=== PATIENT | female | born 1965 | race Caucasian/White ===

== ENCOUNTER 2016-06-01 03:18 | Emergency (ER) | payer OTHER ==
[~2016-06-01] VITALS: Ht 162.6 cm; Wt 74.4 kg
[~2016-06-01 03:18] MED LIST: ALPRAZOLAM0.5 MG PO; ALPRAZOLAM1 MG PO; ASPIR-LOW81 MG PO; ASPIRIN81 M2 PO; ATARAX,VISTARIL25 MG PO; ATORVASTATIN CA40 MG PO; AUGMENTIN875 MG PO; BENTYL20 MG PO; CEFTIN500 MG PO; CELEXA20 MG PO; CHANTIX0.5 MG PO; CITALOPRAM HBR20 MG PO; DICYCLOMINE HCL10 MG PO; DILAUDID4 MG PO; EFFEXOR25 MG PO; ENDOCET 5-3251 EACH PO; ERGOCALCIF50000 UNIT PO; GEODON20 MG PO; GEODON40 MG PO; HYDROCODON-ACE1 EAC7 PO; HYDROXYZINE PAM25 MG PO; IBUPROFEN800 MG PO; IMITREX100 MG PO; KEFLEX500 MG PO; MELOXICAM15 MG PO; MIRTAZAPINE15 MG PO; MOBIC15 MG PO; MOTRIN400 MG PO; NAPROSYN500 MG PO; NAPROXEN500 MG PO; NICODERM CQ1 EAC2 TD; NICOTINE PATCH1 EAC2 TD; OXYCODONE-APAP1 EAC6 PO; PANTOPRAZOLE SO40 MG PO; PERCOCET 10/1 TABLET PO; PERCOCET 5/31 TABLET PO; PERCOCET 7.51 TABLET PO; PRILOSEC20 MG PO; PYRIDIUM100 MG PO; REGLAN10 MG PO; TOPAMAX50 MG PO; TOPIRAMATE25 MG PO; TRAZODONE HCL50 MG PO; TRILAFON2 MG PO; VENLAFAXINE HCL75 M3 PO; VITAMIN D50000 UNI4 PO; XANAX1 MG PO; ZOFRAN ODT4 MG PO; ZOFRAN4 MG PO; ZOFRAN8 MG PO
[2016-06-01 04:11] LABS: CHLORIDE 107 mEq/L (99-109); SODIUM 140 mEq/L (136-147)
[2016-06-01 04:12] LABS: HEMATOCRIT 39.2 % (36.0-46.0); MCH 29.5 PG (29.0-34.0); MCHC 32.4 G/DL (30.0-36.0); MCV 91.2 FL (83-99); MEAN PLAT.VOLUME 10.5 uM^3 (9.5-12.4); PLATELET COUNT 253 K/uL (156-360); RBC DIS.WIDTH-CV 13.7 % (11.8-14.6); RBC DIS.WIDTH-SD 46.1 % (39-53)
[2016-06-01 04:14] LABS: GLUCOSE 132 mg/dL (70-99)
[2016-06-01 04:15] LABS: ANION GAP 10 MEQ/L (2-14); TOTAL BILIRUBIN 0.2 mg/dL (0.0-1.0)
[2016-06-01 04:17] LABS: ALKALINE PHOSPHATASE 128 IU/L (3-129); GFR ESTIMATE (CALCULATED) > 59 mL/min/
[2016-06-01 04:18] LABS: UREA NITROGEN (BUN) 15 mg/dL (9-23)
[2016-06-01 04:21] LABS: TROP-I INTERPRETATION NEGATIVE; TROPONIN-I < 0.01 ng/mL (0.0-0.30)
[2016-06-01 04:25] LABS: D-DIMER ELISA 0.26 mg/L FEU (< 0.57)
[2016-06-01 04:37] LABS: LIPASE 29 U/L (1.0-51.0)
[2016-06-01] MEDS ORDERED: PERCOCET 5/31 TABLET PO (05:23)
[2016-06-01] MEDS ORDERED: LEVAQUIN500 MG PO (05:23)
[2016-06-01] MEDS ORDERED: MEDROL DOSEPAK4 MG PO (05:23)
[2016-06-01] MEDS ORDERED: PROAIR HFA8.5 GM IH (05:23)
[2016-06-01 05:30] VITALS: BP 113/66
[2016-06-01 06:00] LABS: ADD MIUA? YES; BILIRUBIN NEGATIVE; BLOOD LARGE; COLOR YELLOW ((YELLOW)); GLUCOSE (STRIP) NEGATIVE; KETONES NEGATIVE; LEUKOCYTES NEGATIVE; NITRITE NEGATIVE; PROTEIN (STRIP) NEGATIVE; SPECIFIC GRAVITY 1.017 (1.000-1.030); UROBILINOGEN 0.2 MG/DL (0.2-1.0)
[2016-06-01 06:10] LABS: BACTERIA RARE /HPF; EPITHELIAL CELLS RARE /HPF; MUCUS TRACE /LPF; RED BLOOD CELLS TNTC /HPF (0-5); UCUL ADDED? NO; UNCLASSIFIED CRYSTALS 1+ /HPF
== END 2016-06-01 05:44 | disposition home or self-care (01) ==
LOC: EME 03:18
PROVIDERS: Physician Assistant
DX: N13.2 Hydronephrosis with renal and ureteral calculous obstruction (principal); R07.9 Chest pain, unspecified; J44.1 Chronic obstructive pulmonary disease with (acute) exacerbation; J40 Bronchitis, not specified as acute or chronic; Z79.82 Long term (current) use of aspirin; Z79.891 Long term (current) use of opiate analgesic; F17.200 Nicotine dependence, unspecified, uncomplicated
CPT/HCPCS: 71020; 74176; 80053; 81003; 83605; 83690; 84484; 85027; 85379; 93005; 94640; J1885; J2930; J3010; J7030

== ENCOUNTER 2016-06-05 17:30 | Observation (INO) | payer OTHER ==
[~2016-06-05] VITALS: Ht 162.6 cm; Wt 75.5 kg
[~2016-06-05 17:30] MED LIST changes: +LEVAQUIN500 MG PO; +MEDROL DOSEPAK4 MG PO; +PROAIR HFA8.5 GM IH
[2016-06-05 18:18] LABS: HEMATOCRIT 40.1 % (36.0-46.0); MCH 29.6 PG (29.0-34.0); MCHC 32.9 G/DL (30.0-36.0); MCV 89.9 FL (83-99); MEAN PLAT.VOLUME 9.7 uM^3 (9.5-12.4); RBC DIS.WIDTH-CV 13.8 % (11.8-14.6); RBC DIS.WIDTH-SD 45.5 % (39-53); RED BLOOD COUNT 4.46 M/uL (3.80-5.20); WHITE BLOOD COUNT 12.1 K/uL (4.1-10.2)
[2016-06-05 18:23] LABS: CHLORIDE 106 mEq/L (99-109); POTASSIUM 4.6 mEq/L (3.7-5.4); SODIUM 141 mEq/L (136-147)
[2016-06-05 18:25] LABS: D-DIMER ELISA 0.25 mg/L FEU (< 0.57); GLUCOSE 112 mg/dL (70-99)
[2016-06-05 18:26] LABS: ANION GAP 13 MEQ/L (2-14)
[2016-06-05 18:28] LABS: ALKALINE PHOSPHATASE 142 IU/L (3-129)
[2016-06-05 18:29] LABS: GFR ESTIMATE (CALCULATED) 51 mL/min/
[2016-06-05 18:32] LABS: LIPASE 22 U/L (1.0-51.0)
[2016-06-05 18:33] LABS: TOTAL BILIRUBIN 0.3 mg/dL (0.0-1.0); UREA NITROGEN (BUN) 23 mg/dL (9-23)
[2016-06-05 18:53] LABS: PLATELET COUNT 334 K/uL (156-360)
[2016-06-05 19:45] LABS: ADD MIUA? YES; BILIRUBIN NEGATIVE; BLOOD MODERATE; COLOR YELLOW ((YELLOW)); GLUCOSE (STRIP) NEGATIVE; KETONES NEGATIVE; LEUKOCYTES NEGATIVE; NITRITE NEGATIVE; PROTEIN (STRIP) 30; SPECIFIC GRAVITY 1.017 (1.000-1.030); UROBILINOGEN 0.2 MG/DL (0.2-1.0)
[2016-06-05 19:47] LABS: BACTERIA RARE /HPF; EPITHELIAL CELLS RARE /HPF; MUCUS TRACE /LPF; RED BLOOD CELLS 40-50 /HPF (0-5); UCUL ADDED? NO; WHITE BLOOD CELLS 0-5 /HPF (0-5)
[2016-06-05 19:59] LABS: AMPHETAMINE NEGATIVE (500 ng/mL); BARBITURATES NEGATIVE (200 ng/mL); BENZODIAZEPINES NEGATIVE (150 ng/mL); COCAINE NEGATIVE (150 ng/mL); INTERNAL CONTROLS VALID? YES; METHADONE NEGATIVE (200 ng/mL); METHAMPHETAMINE NEGATIVE (500 ng/mL); OPIATES (MORPHINE) NEGATIVE (100 ng/mL); OXYCODONE PRESUMPTIVE POSITIVE (100 ng/mL); PHENCYCLIDINE NEGATIVE (25 ng/mL); PROPOXYPHENE NEGATIVE (300 ng/mL); THC CANNABINOIDS NEGATIVE (50 ng/mL); TRICYCLIC ANTIDEPRESSANTS NEGATIVE (300 ng/mL)
[2016-06-05] MEDS ORDERED: LEVAQUIN500 MG PO (21:05)
[2016-06-05] MEDS ORDERED: VENLAFAXINE225 MG PO (21:06)
[2016-06-05] MEDS ORDERED: MEDROL DOSEPAK4 MG PO (21:07)
[2016-06-05] MEDS ORDERED: GABAPENTIN300 MG PO (21:08)
[2016-06-05] MEDS ORDERED: DUONEB 2.5-0.5 M3 ML AEROSOL (21:08)
[2016-06-05] MEDS ORDERED: MELOXICAM15 MG PO (21:08)
[2016-06-05] MEDS ORDERED: SENNA8.6 MG PO (21:08)
[2016-06-05 23:51] VITALS: BP 112/62
[2016-06-06 03:54] VITALS: BP 113/60
[2016-06-06 08:07] LABS: ANION GAP 9 MEQ/L (2-14); CHLORIDE 111 MEQ/L (99-109); GFR ESTIMATE (CALCULATED) > 59 mL/min/; POTASSIUM 4.5 MEQ/L (3.7-5.4); SAMPLE HEMOLYSIS CHECK 0; SAMPLE ICTERIC CHECK 0; SAMPLE LIPEMIA CHECK 0; SODIUM 143 MEQ/L (136-147); UREA NITROGEN (BUN) 25 mg/dL (9-23)
[2016-06-06 08:19] LABS: GLUCOSE 82 mg/dL (70-99)
[2016-06-06 09:09] VITALS: BP 114/64
[2016-06-06 11:19] VITALS: BP 100/64
[2016-06-06] MEDS ORDERED: CIPRO500 MG PO (12:06)
[2016-06-06] MEDS ORDERED: FLOMAX0.4 MG PO (12:06)
== END 2016-06-06 13:11 | disposition home or self-care (01) ==
LOC: EME → EDBD 17:30 → EDOF 22:30 → 5WEST 23:34
PROVIDERS: Family Medicine; Physician Assistant
DX: N20.1 Calculus of ureter (principal); J44.9 Chronic obstructive pulmonary disease, unspecified; I10 Essential (primary) hypertension; G43.909 Migraine, unspecified, not intractable, without status migrainosus; D72.829 Elevated white blood cell count, unspecified; F11.10 Opioid abuse, uncomplicated; E78.5 Hyperlipidemia, unspecified; F31.9 Bipolar disorder, unspecified; F41.1 Generalized anxiety disorder
CPT/HCPCS: 74177; 80048; 80053; 81003; 83690; 85027; 85379; 94640; 94640 76; 99202; 99281; 99285; G0378; J1170; J1885; J3010; J7030; J7050; Q0177

== ENCOUNTER 2016-08-08 16:11 | Emergency (ER) | payer OTHER ==
[~2016-08-08] VITALS: Ht 162.6 cm; Wt 72.7 kg
[~2016-08-08 16:11] MED LIST changes: +CIPRO500 MG PO; +DUONEB 2.5-0.5 M3 ML AEROSOL; +FLOMAX0.4 MG PO; +GABAPENTIN300 MG PO; +SENNA8.6 MG PO; +VENLAFAXINE225 MG PO
[2016-08-08 20:07] VITALS: BP 116/67
== END 2016-08-08 20:09 | disposition home or self-care (01) ==
LOC: EME 16:11
DX: S30.0XXA Contusion of lower back and pelvis, initial encounter (principal); S10.93XA Contusion of unspecified part of neck, initial encounter; W10.9XXA Fall (on) (from) unspecified stairs and steps, initial encounter; J45.909 Unspecified asthma, uncomplicated; Z86.73 Personal history of transient ischemic attack (TIA), and cerebral infarction without residual deficits; F17.200 Nicotine dependence, unspecified, uncomplicated
CPT/HCPCS: 70450; 72125; 72131; 99281; 99284

== ENCOUNTER 2017-01-20 20:57 | Inpatient (IN) | payer OTHER ==
[~2017-01-20] VITALS: Ht 162.6 cm; Wt 73.5 kg
[~2017-01-20 20:57] MED LIST changes: -GABAPENTIN300 MG PO; +GABAPENTIN400 MG PO; +HYDROXYZINE PAM50 MG PO; -MIRTAZAPINE15 MG PO; +MIRTAZAPINE45 MG PO; -PERCOCET 7.51 TABLET PO
[2017-01-20 23:44] LABS: HEMATOCRIT 41.4 % (36.0-46.0); MCH 30.5 PG (29.0-34.0); MCHC 33.6 G/DL (30.0-36.0); MCV 90.8 FL (83-99); MEAN PLAT.VOLUME 10.9 uM^3 (9.5-12.4); PLATELET COUNT 271 K/uL (156-360); RBC DIS.WIDTH-CV 13.1 % (11.8-14.6); RBC DIS.WIDTH-SD 43.9 % (39-53); RED BLOOD COUNT 4.56 M/uL (3.80-5.20); WHITE BLOOD COUNT 16.2 K/uL (4.1-10.2)
[2017-01-20 23:55] LABS: CHLORIDE 106 mEq/L (99-109); POTASSIUM 4.6 mEq/L (3.7-5.4); SODIUM 141 mEq/L (136-147)
[2017-01-20 23:57] LABS: GLUCOSE 131 mg/dL (70-99)
[2017-01-20 23:59] LABS: ANION GAP 9 MEQ/L (2-14)
[2017-01-21] LABS: SERUM ETHYL ALCOHOL < 10 mg/dL
[2017-01-21 00:01] LABS: GFR ESTIMATE (CALCULATED) 56 mL/min/
[2017-01-21 00:03] LABS: UREA NITROGEN (BUN) 16 mg/dL (9-23)
[2017-01-21 00:04] LABS: SALICYLATE < 5.0 MG/DL (15-30)
[2017-01-21 00:41] LABS: BASE EXCESS 3.5 mEq/L (-3 to +3); BICARBONATE 29.6 mEq/L (22-26); CARBOXY HGB 6.7 % (0-5); METHEMOGLOBIN 0.9 % (0-1.5); PCO2 50 mm Hg (35-45); PO2 56 mm Hg (80-100); pH 7.38 (7.35-7.45)
[2017-01-21 00:42] LABS: COMMENTS - BLOOD GASES A+C+; FI02 21 %; SITE RR
[2017-01-21] MEDS ORDERED: BUSPAR15 MG PO (01:13)
[2017-01-21] MEDS ORDERED: DURAGESIC25 MCG TD (01:13)
[2017-01-21] MEDS ORDERED: LEXAPRO5 MG PO (01:13)
[2017-01-21] MEDS ORDERED: CLONAZEPAM0.5 MG PO (01:13)
[2017-01-21] MEDS ORDERED: SINEQUAN25 MG PO (01:14)
[2017-01-21] MEDS ORDERED: NARCAN4 MG NS (01:14)
[2017-01-21] MEDS ORDERED: DEPAKOTE500 MG PO (01:15)
[2017-01-21 01:45] LABS: ADD MIUA? YES; BILIRUBIN NEGATIVE; BLOOD MODERATE; COLOR YELLOW ((YELLOW)); GLUCOSE (STRIP) 50; KETONES NEGATIVE; LEUKOCYTES SMALL; NITRITE NEGATIVE; PROTEIN (STRIP) 100; SPECIFIC GRAVITY 1.017 (1.000-1.030); UROBILINOGEN 0.2 MG/DL (0.2-1.0)
[2017-01-21 02:08] LABS: ADD MEDTOX COMMENT Y; AMPHETAMINE NEGATIVE (500 ng/mL); BARBITURATES NEGATIVE (200 ng/mL); BENZODIAZEPINES PRESUMPTIVE POSITIVE (150 ng/mL); COCAINE NEGATIVE (150 ng/mL); INTERNAL CONTROLS VALID? YES; METHADONE NEGATIVE (200 ng/mL); METHAMPHETAMINE NEGATIVE (500 ng/mL); OPIATES (MORPHINE) NEGATIVE (100 ng/mL); OXYCODONE PRESUMPTIVE POSITIVE (100 ng/mL); PHENCYCLIDINE NEGATIVE (25 ng/mL); PROPOXYPHENE NEGATIVE (300 ng/mL); THC CANNABINOIDS NEGATIVE (50 ng/mL); TRICYCLIC ANTIDEPRESSANTS PRESUMPTIVE POSITIVE (300 ng/mL)
[2017-01-21 02:23] LABS: BACTERIA 2+ /HPF; CALCIUM OXALATE CRYSTALS 3+ /HPF; EPITHELIAL CELLS 1+ /HPF; HYALINE CASTS 15-20 /LPF; MUCUS TRACE /LPF; RED BLOOD CELLS TNTC /HPF (0-5); UCUL ADDED? YES; WHITE BLOOD CELLS 20-30 /HPF (0-5)
[2017-01-21 02:57] VITALS: BP 122/72
[2017-01-21 03:59] LABS: BENZODIAZEPINES, URINE SCREEN POSITIVE (200 ng/mL)
[2017-01-21 06:16] LABS: EOSINOPHIL (%) 0.1 % (0-5); IMMATURE GRANULOCYTE (%) 0.5 % (0.0-0.7); IMMATURE GRANULOCYTE COUNT 0.1 K/uL; INSTRUMENT ABS NEUTROPHIL CT 10.9 K/uL; LYMPHOCYTE COUNT 2.6 K/uL (1.0-2.8); MCH 30.2 PG (29.0-34.0); MCHC 33.1 G/DL (30.0-36.0); MCV 91.4 FL (83-99); MONOCYTE (%) 5.9 % (3-12); MONOCYTE COUNT 0.9 K/uL (0-0.8); NEUTROPHIL (%) 75.2 % (45-76); NEUTROPHIL COUNT 10.9 K/uL (1.8-6.4); PLATELET COUNT 252 K/uL (156-360); RBC DIS.WIDTH-CV 13.1 % (11.8-14.6); RBC DIS.WIDTH-SD 44.8 % (39-53); RED BLOOD COUNT 3.94 M/uL (3.80-5.20); WHITE BLOOD COUNT 14.5 K/uL (4.1-10.2)
[2017-01-21 06:54] LABS: ANION GAP 6 MEQ/L (2-14); CHLORIDE 107 MEQ/L (99-109); GFR ESTIMATE (CALCULATED) > 59 mL/min/; POTASSIUM 4.6 MEQ/L (3.7-5.4); SAMPLE HEMOLYSIS CHECK 0; SAMPLE ICTERIC CHECK 0; SAMPLE LIPEMIA CHECK 1; SODIUM 140 MEQ/L (136-147); UREA NITROGEN (BUN) 15 mg/dL (9-23)
[2017-01-21 07:06] LABS: GLUCOSE 89 mg/dL (70-99)
[2017-01-21 08:12] VITALS: BP 114/65
[2017-01-21 11:32] VITALS: BP 131/65
== END 2017-01-21 14:20 | disposition home or self-care (01) | DRG 917 ==
LOC: EME → EDBD 20:57 → EME 20:57 → EDOF 01-21 00:33 → 3EAST 01-21 00:33 → ENRESERV 01-21 00:56 → 3EAST 01-21 02:35
PROVIDERS: Emergency Medicine; Family Medicine Sports Medicine
DX: T40.2X1A Poisoning by other opioids, accidental (unintentional), initial encounter (principal); J69.0 Pneumonitis due to inhalation of food and vomit; F17.200 Nicotine dependence, unspecified, uncomplicated; E78.5 Hyperlipidemia, unspecified; I10 Essential (primary) hypertension; G89.29 Other chronic pain; R09.02 Hypoxemia; Y92.9 Unspecified place or not applicable; Z86.73 Personal history of transient ischemic attack (TIA), and cerebral infarction without residual deficits
CPT/HCPCS: 36600; 71010; 74230; 80048; 81003; 82803; 83605; 84999; 85025; 85027; 87040; 87086; 92611 GN; 99202; 99281; 99284; 99285; G0480; J0456; J0696; J1650; J2310; J2543; J7030; J7050; J7120

== ENCOUNTER 2017-03-09 17:49 | Emergency (ER) | payer OTHER ==
[~2017-03-09] VITALS: Ht 162.6 cm; Wt 76.8 kg
[~2017-03-09 17:49] MED LIST changes: +BUSPAR15 MG PO; +CLONAZEPAM0.5 MG PO; +DEPAKOTE500 MG PO; +DURAGESIC25 MCG TD; +LEXAPRO5 MG PO; +NARCAN4 MG NS; +SINEQUAN25 MG PO
[2017-03-09 20:46] VITALS: BP 138/79
== END 2017-03-09 20:47 | disposition home or self-care (01) ==
LOC: EME 17:49
DX: R51 Headache (principal); J45.909 Unspecified asthma, uncomplicated; F41.9 Anxiety disorder, unspecified; Z86.73 Personal history of transient ischemic attack (TIA), and cerebral infarction without residual deficits; F17.200 Nicotine dependence, unspecified, uncomplicated; Z79.82 Long term (current) use of aspirin
CPT/HCPCS: 99281; 99284; J1100; J1885; J2765

== ENCOUNTER 2017-05-27 05:05 | Observation (INO) | payer OTHER ==
[~2017-05-27] VITALS: Ht 162.6 cm; Wt 76.0 kg
[~2017-05-27 05:05] MED LIST changes: -SINEQUAN25 MG PO; +SINEQUAN50 MG PO
[2017-05-27 06:05] LABS: HEMATOCRIT 41.4 % (36.0-46.0); MCH 30.6 PG (29.0-34.0); MCHC 33.8 G/DL (30.0-36.0); MCV 90.6 FL (83-99); PLATELET COUNT 228 K/uL (156-360); RBC DIS.WIDTH-CV 13.8 % (11.8-14.6); RBC DIS.WIDTH-SD 45.6 % (39-53); RED BLOOD COUNT 4.57 M/uL (3.80-5.20); WHITE BLOOD COUNT 7.2 K/uL (4.1-10.2)
[2017-05-27 06:10] LABS: ALBUMIN 3.9 g/dL (3.2-4.8); CHLORIDE 108 mEq/L (99-109); POTASSIUM 4.2 mEq/L (3.7-5.4); SODIUM 141 mEq/L (136-147)
[2017-05-27 06:13] LABS: GLUCOSE 92 mg/dL (70-99); TOTAL PROTEIN 6.5 g/dL (6.4-8.3)
[2017-05-27 06:14] LABS: TOTAL BILIRUBIN 0.3 mg/dL (0.0-1.0)
[2017-05-27 06:16] LABS: ALKALINE PHOSPHATASE 96 IU/L (3-129); CREATININE 0.8 mg/dL (0.6-1.3); GFR ESTIMATE (CALCULATED) > 59 mL/min/
[2017-05-27 06:17] LABS: UREA NITROGEN (BUN) 15 mg/dL (9-23)
[2017-05-27 06:18] LABS: AST (GOT) 29 IU/L (2-34)
[2017-05-27 06:19] LABS: ALT (GPT) 47 IU/L (3-49)
[2017-05-27 06:20] LABS: LIPASE 45 U/L (1.0-51.0)
[2017-05-27 06:22] LABS: TROP-I INTERPRETATION NEGATIVE; TROPONIN-I < 0.01 ng/mL (0.0-0.30)
[2017-05-27 07:46] LABS: VALPROIC ACID (DEPAKOTE) < 10.0 MCG/ML (50-100)
[2017-05-27] MEDS ORDERED: LATUDA20 MG PO (08:53)
[2017-05-27] MEDS ORDERED: TRAZODONE HCL50 MG PO (08:54)
[2017-05-27 12:35] LABS: TROP-I INTERPRETATION NEGATIVE; TROPONIN-I < 0.01 ng/mL (0.0-0.30)
[2017-05-27 14:26] VITALS: BP 103/63
[2017-05-27 18:28] LABS: TROP-I INTERPRETATION NEGATIVE; TROPONIN-I < 0.01 ng/mL (0.0-0.30)
[2017-05-27 20:00] VITALS: BP 107/65
[2017-05-28] MEDS ORDERED: NICOTINE PATCH1 EAC2 TD (11:41)
[2017-05-28 11:43] VITALS: BP 121/62
== END 2017-05-28 12:05 | disposition home or self-care (01) ==
LOC: EME → EDBD 05:05 → EDOF 08:10 → ENRESERV 08:11 → EDOF 08:28 → ENRESERV 12:42 → 5WEST 14:11
PROVIDERS: Emergency Medicine; Internal Medicine
DX: R55 Syncope and collapse (principal); G43.909 Migraine, unspecified, not intractable, without status migrainosus; F31.9 Bipolar disorder, unspecified; F11.20 Opioid dependence, uncomplicated; F17.200 Nicotine dependence, unspecified, uncomplicated; G89.29 Other chronic pain; M54.9 Dorsalgia, unspecified; E78.5 Hyperlipidemia, unspecified; F41.1 Generalized anxiety disorder; R53.1 Weakness; Z86.73 Personal history of transient ischemic attack (TIA), and cerebral infarction without residual deficits; Z79.82 Long term (current) use of aspirin; Z88.5 Allergy status to narcotic agent
CPT/HCPCS: 70450; 70551; 71045; 80053; 80164; 81003; 82140; 83690; 83880; 84484; 85027; 93005; 99202; 99281; 99285; G0378; J1200; J1650; J1885; J2765; J2930; J3010; J7030; Q0177

== ENCOUNTER 2017-07-11 13:07 | Emergency (ER) | payer OTHER ==
[~2017-07-11] VITALS: Ht 162.6 cm; Wt 78.2 kg
[~2017-07-11 13:07] MED LIST changes: +LATUDA20 MG PO
[2017-07-11 14:16] LABS: HEMATOCRIT 40.8 % (36.0-46.0); HEMOGLOBIN 13.9 G/DL (11.9-15.5); MCH 30.8 PG (29.0-34.0); MCHC 34.1 G/DL (30.0-36.0); MCV 90.3 FL (83-99); PLATELET COUNT 304 K/uL (156-360); RBC DIS.WIDTH-CV 13.9 % (11.8-14.6); RBC DIS.WIDTH-SD 46.4 % (39-53); RED BLOOD COUNT 4.52 M/uL (3.80-5.20); WHITE BLOOD COUNT 10.5 K/uL (4.1-10.2)
[2017-07-11 14:35] LABS: APPEARANCE SL.HAZY ((CLEAR)); BILIRUBIN NEGATIVE; BLOOD MODERATE; COLOR YELLOW ((YELLOW)); GLUCOSE (STRIP) NEGATIVE; KETONES NEGATIVE; LEUKOCYTES TRACE; NITRITE NEGATIVE; PROTEIN (STRIP) 30; SPECIFIC GRAVITY 1.014 (1.000-1.030); UROBILINOGEN 0.2 MG/DL (0.2-1.0)
[2017-07-11 14:40] LABS: BACTERIA RARE /HPF; EPITHELIAL CELLS 1+ /HPF; HYALINE CASTS 0-5 /LPF; MUCUS NONE SEEN /LPF; UCUL ADDED? YES
[2017-07-11 14:41] LABS: ALBUMIN 4.2 G/DL (3.2-4.8); CHLORIDE 108 MEQ/L (99-109); POTASSIUM 4.1 MEQ/L (3.7-5.4); SODIUM 137 MEQ/L (136-147); TOTAL BILIRUBIN 0.3 MG/DL (0.0-1.0)
[2017-07-11 14:47] LABS: ALKALINE PHOSPHATASE 110 IU/L (3-129); ALT (GPT) 18 IU/L (3-49); AST (GOT) 12 IU/L (2-34); CREATININE 1.2 MG/DL (0.6-1.3); GFR ESTIMATE (CALCULATED) 50 mL/min/; GLUCOSE 84 mg/dL (70-99); LIPASE 12 U/L (1.0-51.0); TOTAL PROTEIN 6.9 G/DL (6.4-8.3); UREA NITROGEN (BUN) 18 mg/dL (9-23)
[2017-07-11 15:31] LABS: QUANTITATIVE HCG < 4.0 MIU/ML
[2017-07-11] MEDS ORDERED: PREDNISONE50 MG PO (16:03)
[2017-07-11 16:14] VITALS: BP 122/99
== END 2017-07-11 16:15 | disposition home or self-care (01) ==
LOC: EME 13:07
DX: M94.0 Chondrocostal junction syndrome [Tietze] (principal); J45.909 Unspecified asthma, uncomplicated; G89.29 Other chronic pain; F41.9 Anxiety disorder, unspecified; F17.200 Nicotine dependence, unspecified, uncomplicated; Z87.442 Personal history of urinary calculi; Z86.73 Personal history of transient ischemic attack (TIA), and cerebral infarction without residual deficits; Z90.710 Acquired absence of both cervix and uterus; Z79.82 Long term (current) use of aspirin; Z88.5 Allergy status to narcotic agent
CPT/HCPCS: 74176; 80053; 81003; 83690; 84702; 85027; 87086; 99281; 99284; J1885

== ENCOUNTER 2017-08-31 13:37 | Emergency (ER) | payer OTHER ==
[~2017-08-31] VITALS: Ht 162.6 cm; Wt 78.2 kg
[~2017-08-31 13:37] MED LIST changes: +PREDNISONE50 MG PO
[2017-08-31] MEDS ORDERED: MOTRIN800 MG PO (14:28)
[2017-08-31 14:43] VITALS: BP 102/87
== END 2017-08-31 14:44 | disposition home or self-care (01) ==
LOC: EME 13:37
DX: M25.572 Pain in left ankle and joints of left foot (principal); M79.89 Other specified soft tissue disorders; Z88.5 Allergy status to narcotic agent
CPT/HCPCS: 73610; 99281; 99283